=== PATIENT | male | born 2000 | race Caucasian/White ===

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

== ENCOUNTER 2023-12-31 15:57 | Emergency (ER) | payer OTHER, BC ==
[2023-12-31 17:48] VITALS: BP 137/99; PULSE 79
== END 2023-12-31 17:40 | disposition home or self-care (01) ==
LOC: JD.ED 15:57
DX: S20.211A Contusion of right front wall of thorax, initial encounter (principal); Z79.899 Other long term (current) drug therapy; V89.2XXA Person injured in unspecified motor-vehicle accident, traffic, initial encounter
CPT/HCPCS: 71101-26-RT; 71101-RT; 99282; 99284